=== PATIENT | male | born 1985 | race Caucasian/White ===

== ENCOUNTER 2017-03-25 15:47 | Emergency (ER) | payer SELFPAY ==
--- OUTSIDE RECORDS SUMMARY | 2017-03-25 16:46 | XMS REPORT | Clinical Summary ---
:1985 Author Organization [id number] [place] [address] Care Team Providers Name Role Phone Unavailable Primary Care Provider Unavailable Source Comments This disclosure is being made pursuant to the [employer] program and maynot contain all information available regarding this patient.[id number] Allergies Not on File Current Medications Be aware that medications may not be up to date as of this document. Alwaysverify current medications with the patient. Not on file Active Problems Not on file Social History Tobacco Use Types Packs/Day Years Used Date Never Assessed Sex Assigned at Date Recorded Not on file Last Filed Vital Signs Not on file Plan of Treatment Health Maintenance Due Date Last Done Comments Retired-Pertussis Vaccine Adult 2006 Retired-Tetanus Vaccine Adult 2006 Retired-INFLUENZA VACCINE 05/01/2015 Results Not on filefrom Last 3 Months
[2017-03-25] MEDS ORDERED: VANCOMYCIN HCL 1 GM in DEXTROSE 5 % IN WATER 250 ML IV ONE ×2 (17:03)
[2017-03-25] MEDS ORDERED: NORMAL SALINE 1,000 ML IV ONE (17:04)
[2017-03-25 17:15] LABS: Hematocrit 40.3 % (42.0-52.0); Hemoglobin 14.3 gm/dL (13.5-18.0); Mean Cell Volume 86.7 fl (78-100); Mean Corpuscular Hemoglobin 30.8 pg (27-31); Mean Corpuscular Hgb Conc 35.5 g/dl (32-36); Mean Platelet Volume 9.4 fl (6.0-9.5); Neutrophil # 3.5 K/mm3 (1.3-6.0); Neutrophil % 58.7 % (42-75.0); Platelet Count 177 K/mm3 (150-450); Red Blood Count 4.65 M/mm3 (4.7-6.0); Red Cell Distribution Width 12.1 % (11.5-14.0)
[2017-03-25 17:29] LABS: Albumin * 3.5 gm/dl (3.4-5.0); Anion Gap 10.9 mmol/L (6.8-13.8); BUN/Creatinine Ratio 11.7 (9.0-21.6); Bilirubin, Total 0.4 mg/dL (0.0-1.1); Ca. Corrected For Albumin 8.8 mg/dL (8.4-10.2); Calcium * 8.7 mg/dL (7.9-10.9); Carbon Dioxide 32.1 mmol/L (24-32.6); Total Protein 7.3 gm/dL (6.2-8.2)
--- NOTE | 2017-03-25 19:01 | ERNOTE ---
Integumentary HPI - Narrative Date of Service: 03/25/17 - General Presenting Symptoms: abscess Time Seen by Provider: 03/25/17 16:38 Source: patient Exam Limitations: no limitations - Immun/Allergies/Home Medications Immunizations: IMMUNIZATION HX Immunizations Up to Date Yes History of Influenza Vaccine No Hx Pneumococcal Vaccination No Allergies/Adverse Reactions: Allergies Allergy/AdvReac Type Severity Reaction Status Date / Time No Known Allergies Allergy Verified 03/26/15 16:47 Home Medications: HOME MEDICATIONS Albuterol Sulfate [Albuterol Sulfate 0.63 MG/3ML] 0.63 mg IH PRN 02/27/15 [Last Taken Unknown] Albuterol Sulfate [Ventolin Hfa] 1 puff IH PRN 02/27/15 [Last Taken Unknown] Clindamycin HCl [Cleocin HCl] 300 mg PO TID 03/25/17 [Last Taken Unknown] - History of Present Illness Narrative: Patient relates that he had swelling left scrotum 4 days ago. Was seen and placed on Clindamycin. Despite this he has had enlargement of the area he feels is an abscess. No fever but has felt hot. Pain is noted at the skin of the scrotum. No vomiting. No specific testicular pain. Pain can be severe when the area is touched. No abdominal pain. Location: Reports: other - left scrotum Severity: moderate Exposure: Reports: no cause identified Modifying Factors - (Improves): Reports: nothing Modifying Factors - (Worsens): Reports: other - palpation Associated Symptoms: Denies: headache Prior Treatment: Reports: recently seen, currently on antibiotics Review of Systems - Review of Systems Constitutional: Absent: fever Respiratory: Absent: shortness of breath Cardiology: Absent: chest pain Gastrointestinal/Abdominal: Absent: vomiting, abdominal pain Genitourinary: Present: See HPI. Absent: dysuria Musculoskeletal: Absent: back pain Skin: Present: See HPI Neurological: Absent: weakness - Patient's Past Medical History Patient History - Medical: No pertinent hx Patient History - Cardiac/Respiratory: No pertinent hx Patient History - Cancer: No Hx of Cancer Patient History - Surgical Procedures: Other Patient History - Other: None - Social History Living Situations: home Psych History: No pertinent hx Smoking Status: Former smoker - Immunizations Immunizations Up to Date: Yes Hx Pneumococcal Vaccination: No History of Influenza Vaccine: No Physical Exam - Physical Exam General Appearance: Present: alert, no apparent distress, other - stable, non- toxic, no distress Head Exam: Present: normal inspection, no evidence of injury Eye Exam: Normal inspection: bilateral, PERRL: bilateral Ears, Nose, Throat: Present: normal ENT inspection Neck: Present: normal inspection Respiratory: Present: no respiratory distress, lungs clear Cardiovascular/Chest: Present: regular rate, rhythm Gastrointestinal/Abdominal: Present: normal bowel sounds, nontender, nondistended, soft. Absent: tenderness Male Genitals Exam: Present: other - There is skin redness left scrotum with approx 4X2cm area of firmness. This is not perirectal and not on the perineum. The testicles themselves are not tender. This does not have a pointing head and I do not feel could be easliy drained in the ED. Back Exam: Present: normal range of motion Extremity Exam: Present: normal inspection Neurological Exam: Present: alert, normal mood/affect, no motor/sensory deficits. Absent: motor weakness Skin Exam: Present: normal color, warm/dry, other - no necrosis of the scrotum, no crepitance ED Progress - Results and Orders Patient's Lab Results:: I have reviewed the patient's lab results. - Vital Signs Patient's Vital Signs:: I have reviewed the patient's vital signs. Vital Signs: Vital Signs 03/25/17 03/25/17 16:06 18:04 Temperature 36.7 C Pulse Rate 57 L 52 L Respiratory 16 16 Rate Blood Pressure 122/77 111/61 O2 Sat by Pulse 98 92 Oximetry - CT/Ultrasound CT/Ultrasound Narrative: I reviewed the CT report, no clear abscess and no Nec Fasc. - Progress/Reassessment Chief Complaint: Abscess Progress Note-Subjective: 03/25/17 19:01 03/25/17 19:[address] Villanueva who was loss prevention detective for urology. He recommends labs and CT. If no significant findings he will see the patient in his office in the morning. He is to be NPO after MN and call at 8am to be seen. Pt agreeable. he does not want to be admitted to the hospital, understands risks and benefits. He displays no findings of nec fasc/Sravani's or sepsis/toxicity. IV Abx given. I discussed warning signs and reasons to return as well as the need for close f/u. 03/25/17 19:22 Departure Clinical Impression: Scrotal infection - Departure Disposition: Home self-care Condition: Stable Additional Instructions: Rest. Fluids. Nothing to eat or drink after midnight. Call Dr Villanueva's office at 8am tomorrow for your appointment time. If you have any difficulty with this please call back here and we will assist you. Otherwise continue current medications. Return here for fever, vomiting, increased swelling or redness or if your condition worsens or changes in any way.
[2017-03-25 20:40] VITALS: BP 117/58
== END 2017-03-25 20:40 | disposition home or self-care (01) ==
LOC: ER 15:47
DX: N49.2 Inflammatory disorders of scrotum (principal); Z87.891 Personal history of nicotine dependence

== ENCOUNTER 2017-03-28 09:29 | Emergency (ER) | payer BC ==
[2017-03-28 09:47] VITALS: BP 142/91
[2017-03-28] MEDS ORDERED: PROMETHAZINE HCL 50 MG/ML AMPUL IM ONE ×2 (10:03→10:15)
[2017-03-28] MEDS ORDERED: MORPHINE SULFATE 4 MG/ML SYRG IV ONE (10:03)
--- NOTE | 2017-03-28 10:07 | ERNOTE ---
Integumentary HPI - Narrative Date of Service: 03/28/17 - General Presenting Symptoms: abscess Time Seen by Provider: 03/28/17 09:56 Source: patient, family, RN notes reviewed Exam Limitations: no limitations - Immun/Allergies/Home Medications Immunizations: IMMUNIZATION HX Immunizations Up to Date Yes History of Influenza Vaccine No Hx Pneumococcal Vaccination No Allergies/Adverse Reactions: Allergies Allergy/AdvReac Type Severity Reaction Status Date / Time No Known Allergies Allergy Verified 03/28/17 09:47 Home Medications: HOME MEDICATIONS Albuterol Sulfate [Albuterol Sulfate 0.63 MG/3ML] 0.63 mg IH PRN 02/27/15 [Last Taken Unknown] Albuterol Sulfate [Ventolin Hfa] 1 puff IH PRN 02/27/15 [Last Taken Unknown] - History of Present Illness Narrative: 31 y/o male ambulatory to the ED for an abscess on his scrotum. He was seen here for this on 03/25. His CT scan and labs were unremarkable at that time. He was referred to urology. He saw Dr. Villanueva on 03/26 and an I&D was done. Packing was placed in the wound, and was to be changed yesterday but the patient is unable to remove the packing due to pain. He has been taking Percocet with little improvement. He is also on Bactrim. He denies any fever, chills or vomiting. He does report nausea, but attributes this to the Percocet. Location: Reports: genitalia Quality: Reports: painful Prior Treatment: Reports: recently seen, treated by physician, currently on antibiotics Review of Systems - Review of Systems Constitutional: Present: malaise. Absent: fever, chills EYE: Present: no symptoms reported ENT: Present: no symptoms reported Respiratory: Absent: shortness of breath, cough Cardiology: Present: no symptoms reported Gastrointestinal/Abdominal: Present: nausea. Absent: vomiting, abdominal pain Genitourinary: Present: pain. Absent: dysuria, hematuria Musculoskeletal: Absent: muscle pain, joint pain Skin: Present: lesions, lumps. Absent: rash Neurological: Absent: headache, dizziness/light-headedness Endocrine: Present: no symptoms reported Hematologic/Lymphatic: Absent: easy bruising, easy bleeding Psych: Present: no symptoms reported - Patient's Past Medical History Patient History - Medical: No pertinent hx Patient History - Cardiac/Respiratory: No pertinent hx Patient History - Cancer: No Hx of Cancer Patient History - Surgical Procedures: Other Patient History - Other: None - Social History Living Situations: home Psych History: No pertinent hx Alcohol Use: none Drug Use: none - Immunizations Immunizations Up to Date: Yes Hx Pneumococcal Vaccination: No History of Influenza Vaccine: No Physical Exam - Physical Exam General Appearance: Present: wd/wn, alert, mild distress - appears uncomfortable Respiratory: Present: no respiratory distress, normal breath sounds, no accessory muscle use, lungs clear Cardiovascular/Chest: Present: regular rate, rhythm, no murmur, normal peripheral pulses Male Genitals Exam: Present: scrotum tenderness (L), other - 4 cm incision on left scrotum with packing present, no surrounding redness Extremity Exam: Present: normal inspection, normal range of motion Neurological Exam: Present: alert, oriented, normal mood/affect, no motor/ sensory deficits Skin Exam: Present: normal color, warm/dry ED Progress - Vital Signs Patient's Vital Signs:: I have reviewed the patient's vital signs. Vital Signs: Vital Signs 03/28/17 09:42 Temperature 36.7 C Pulse Rate 57 L Respiratory 12 Rate Blood Pressure 142/91 O2 Sat by Pulse 97 Oximetry - Progress/Reassessment Chief Complaint: Abscess Progress:: Improved Plan - Plan Plan: Packing removed from scrotal incision and replaced. Wound appears healthy, no purulent drainage. Patient tolerated well. Departure Clinical Impression: Dressing change or removal, surgical wound, Abscess of scrotum - Departure Disposition: Home Follow Up Needed Condition: Good Instructions: Incision and Drainage, Care After Additional Instructions: Change packing daily Continue your current medications Follow up with Dr. Villanueva as scheduled, or return as needed for worsening symptoms Referrals: Caleb Villanueva MD [Associate] -
[2017-03-28] MEDS ORDERED: MORPHINE SULFATE 4 MG/ML SYRG ONE (10:15)
--- OUTSIDE RECORDS SUMMARY | 2017-03-28 10:25 | XMS REPORT | Clinical Summary ---
:1985 Author Organization [facility] [place] [address] Care Team Providers Name Role Phone Unavailable Primary Care Provider Unavailable Source Comments This disclosure is being made pursuant to the [email or web address] program and maynot contain all information available regarding this patient.[facility] Allergies Not on File Current Medications Be [...]
== END 2017-03-28 11:15 | disposition home or self-care (01) ==
LOC: ER 09:29
DX: Z48.00 Encounter for change or removal of nonsurgical wound dressing (principal); T81.89XA Other complications of procedures, not elsewhere classified, initial encounter; N49.2 Inflammatory disorders of scrotum